=== PATIENT | male | born 1940 | race Caucasian/White ===

== ENCOUNTER 2018-06-02 11:59 | Inpatient (IN) ==
[2018-06-02] MEDS ORDERED: Iohexol 300 MG/ML 100 ML Vial (for Rad CT) IVCONTRAST ONE (12:00)
[2018-06-02] MEDS ORDERED: Iohexol 300 MG/ML 50 ML Vial (for Rad Diag) IVCONTRAST ONE (12:00)
[2018-06-02] MEDS ORDERED: Lidocaine PF 1% Inj 5 ML Syringe INFILTRATN ONE (12:00)
[2018-06-02] MEDS ORDERED: Glycopyrrolate Inj 1 MG/5 ML Syringe IV.PUSH ONE (12:00)
[2018-06-02] MEDS ORDERED: Neostigmine Inj 5 MG/5 ML Syringe IV.PUSH ONE (12:00)
[2018-06-02] MEDS ORDERED: Phenylephrine/NS 1000 MCG/10ML Syringe IV.PUSH ONE (12:00)
[2018-06-02] MEDS ORDERED: ceFAZolin 2 GM/NS 100 ML IV IV.SIG ONE ×2 (13:00)
[2018-06-02] MEDS ORDERED: Chlorhexidine Gluconate 2% 1 Pack (2 Cloths) TOPICAL SCH (13:00)
[2018-06-02] MEDS ORDERED: Sodium Chlor 0.9% Inj 500 ML IV.SIG SCH (13:00)
[2018-06-02] MEDS ORDERED: Metoprolol Tartrate 25 MG Tablet PO SCH (13:00)
[2018-06-02] MEDS ORDERED: ceFAZolin 2 GM Premix Inj 2 GM/100 ML BAG IV.SIG ONE (13:34)
--- NOTE | 2018-06-02 13:59 | ECG ---
Date Performed: 06/02/2018 Time Performed: 13:26:31 PTAGE: 78 years EKG: SINUS BRADYCARDIA WITH FIRST DEGREE AV BLOCK WITH OCCASIONAL SUPRAVENTRICULAR PREMATURE COM PLEXES BORDERLINE LEFT AXIS DEVIATION MINIMAL VOLTAGE CRITERIA FOR LVH, CONSIDER NORMAL VARIANT ABNOR MAL ECG NO PREVIOUS TRACING DOCTOR: Gaston Branham Interpretating Date/Time 06/02/2018 13:58:37
[2018-06-02] MEDS ORDERED: Heparin 10,000 UNITS/10 ML Vial (for IV use) ONE (14:45)
[2018-06-02] MEDS ORDERED: Bupivacaine/Epinephrine PF Inj 0.5% 30 ML Vial ONE (14:46)
[2018-06-02] MEDS ORDERED: Heparin - SQ 10,000 UNITS/ML Vial ONE (14:46)
[2018-06-02] MEDS ORDERED: Protamine Sulfate Inj 50 MG/5 ML Vial ONE (14:46)
[2018-06-02] MEDS ORDERED: MethylPREDNISolone Sod Succinate Inj 125 MG/2 ML Vial ONE (15:04)
[2018-06-02] MEDS ORDERED: Famotidine PF Inj 20 MG/2 ML Vial ONE (15:05)
[2018-06-02] MEDS ORDERED: fentaNYL Citrate Inj 100 MCG/2 ML Ampul ONE (17:06)
[2018-06-02] MEDS ORDERED: *morphine SULFATE 4 MG/ML PERIprocedure ONLY ONE (17:55)
[2018-06-02] MEDS ORDERED: Dextrose 50% in Water 50 ML Vial IV.PUSH PRN (18:12)
[2018-06-02] MEDS ORDERED: Acetaminophen 325 MG Tablet PO PRN (18:18)
[2018-06-02] MEDS ORDERED: Morphine Inj 4 MG/ML Vial IV.PUSH PRN (18:18)
[2018-06-02] MEDS ORDERED: Potassium Chlor 40 mEq Premix 40 MEQ/100 ML PIGGYBACK IV.SIG PRN (18:19)
[2018-06-02] MEDS ORDERED: Potassium Chlor 20 mEq Premix 20 MEQ/100 ML PIGGYBACK IV.SIG PRN (18:20)
[2018-06-02] MEDS ORDERED: Mag Sulf 1 gm/100 ml Premix 100 ML IV.SIG PRN (18:21)
[2018-06-02] MEDS ORDERED: SODIUM CHLOR 0.9% IV.SIG PRN (18:24)
[2018-06-02] MEDS ORDERED: POTASSIUM PHOSPHATE IV.SIG PRN (18:24)
--- NOTE | 2018-06-02 20:30 | MP ---
cc: Jamar Hernandez MD, Patricia J MD DATE OF OPERATION: PREOPERATIVE DIAGNOSIS: Infrarenal abdominal aortic aneurysm, 5.4 cm diameter. POSTOPERATIVE DIAGNOSIS: Infrarenal abdominal aortic aneurysm, 5.4 cm diameter. OPERATIVE PROCEDURE: Percutaneous endovascular aneurysm repair. SURGEON: Jamar Hernandez MD MANAGER OF HUMAN RESOURCES: TIM Phelps ANESTHESIA: General endotracheal. DESCRIPTION OF THE OPERATIVE PROCEDURE: With the patient in the supine position, general endotracheal anesthesia was induced, the lower abdomen, both groins and thighs prepped with Betadine and draped in a sterile fashion. Two grams of Ancef were administered intravenously. Following a protocol timeout, skin and subcutaneous tissue overlying and surrounding both common femoral access sites were preemptively infiltrated with 0.5% Marcaine with epinephrine. Utilizing ultrasound guidance, 18-gauge needles were inserted retrograde into both the right and left mid common femoral lumens. J-wires were advanced under fluoroscopic guidance into the iliac arteries, followed by deployment of 7-Lao hemostatic sheaths bilaterally. Angled Glidewires were negotiated under fluoroscopic guidance into the suprarenal aorta followed by predeployment of Perclose devices at the 10 and 2 o'clock positions bilaterally. The angled Glidewires were then exchanged for Amplatz wires over Berenstein catheters. An 18 and 12-Lao hemostatic sheaths were deployed via the right and left common femoral arteries respectively. A marker pigtail catheter was advanced via the left femoral sheath to the suprarenal level and flush aortogram accurately delineated the origin of both renal arteries and also allowed iliac length measurements for appropriate selection of the main body endoprosthesis length. The main body endoprosthesis was delivered via the right femoral sheath and predeployed immediately distal to the origin of the renal arteries. The contralateral gate was engaged with an angled Glidewire Berenstein catheter combination and a Q50 balloon advanced into the main body lumen and partially inflated to accurately ensure endoluminal location. Diluted contrast was injected via the left femoral sheath allowing appropriate contralateral limb length selection. The contralateral limb was then deployed. Repeat aortogram again adequately defined appropriate predeployment of the aortic portion of the graft and the proximal deployment was completed. Diluted contrast injected via the right femoral sheath to define the right iliac bifurcation. A turner bottom iliac plastics design engineer was then deployed. Finally, the aortic and iliac seals and overlap areas were gently balloon dilated with a Q50 balloon. Completion angiogram revealed a secure repair with no technical defects. The femoral sheaths were then removed and hemostasis achieved with deployment of the Perclose devices. Heparin was reversed with 30 mg of protamine and strict hemostasis achieved. Pedal pulses remain easily palpable bilaterally. Instrument, needle, and sponge count were correct x2. The patient returned to postanesthesia recovery in stable condition, having tolerated the procedure well. Jamar Hernandez MD JTS/sv , 06:13 PM , 06:24 PM
[2018-06-02] MEDS: Atenolol 25 MG Tablet PO SCH (22:35)
[2018-06-03 03:15] VITALS: RESP 18
[2018-06-03] MEDS: Insulin NovoLIN Regular Correctional Sugar Inj SQ SCH ×3 (05:56→12:54)
[2018-06-03] MEDS ORDERED: glipiZIDE 10 MG Tablet PO SCH (09:00)
[2018-06-03] MEDS ORDERED: METFORMIN PO SCH (09:00)
[2018-06-03] MEDS ORDERED: EMPAGLIFLOZIN PO SCH (09:00)
[2018-06-03] MEDS ORDERED: LISDEXAMFETAMINE 20 MG PO SCH (09:00)
[2018-06-03] MEDS: Atenolol 25 MG Tablet PO SCH (09:38)
[2018-06-03 12:12] VITALS: BP 119/52; PULSE 55; TEMP 97.7; O2SAT 96
== END 2018-06-03 14:32 | disposition home or self-care (01) ==
LOC: HSDI 11:59 → HCPC 20:19
PROVIDERS: ADMIT Surgery Vascular Surgery; ATTEND Surgery Vascular Surgery